=== PATIENT | female | born 1970 | race American Indian/Alaskan Native ===

== ENCOUNTER 2016-12-22 05:32 | Inpatient (IN) | payer OTHER ==
--- NOTE | 2016-12-22 08:18 | Emergency Department Report ---
- General Chief complaint: Eye Problems Stated complaint: EYE PAIN Time Seen by Provider: 12/22/16 07:15 Source: patient Mode of arrival: Ambulatory Limitations: No Limitations - History of Present Illness Initial comments: 46-year-old female past medical history hypertension, and compliant with medicines presents with complaint of 2 days of right eye irritation and pain. Patient states she has had some discharge from the eye. Denies any blurry vision. While waiting for examination patient informed nurse that she started feeling right-sided facial numbness. On exam patient is awake alert and oriented appears to be somewhat uncomfortable due to right eye pain, clutching her right eye. Patient's overall vision is intact mostly. Patient states she is only moderately compliant with her blood pressure medicines. Patient states that she feels right cheek numbness. This started approximately half an hour before I interviewed her. Denies any current chest pain palpitations shortness of breath nausea vomiting. Is complaining of right-sided headache and right eye pain. Denies any fever or chills no direct trauma. MD Complaint: generalized weakness, numbness Time: 03:00 Severity: moderate Quality: numbness, aching Consistency: constant Worsens with: none Associated Symptoms: headaches - Related Data Previous Rx's Medication Instructions Recorded Last Taken Type Lisinopril/Hydrochlorothiazide 1 each PO QDAY #14 tablet 07/11/15 12/21/16 12: 00 Rx [Zestoretic 20-12.5 mg] Allergies Allergy/AdvReac Type Severity Reaction Status Date / Time No Known Allergies Allergy Unverified 07/11/15 09:24 ED Review of Systems ROS: Stated complaint: EYE PAIN Other details as noted in HPI Constitutional: denies: chills, fever Eyes: eye pain, eye discharge. denies: vision change ENT: denies: ear pain, throat pain Respiratory: denies: cough, shortness of breath, wheezing Cardiovascular: denies: chest pain, palpitations Endocrine: no symptoms reported Gastrointestinal: denies: abdominal pain, nausea, diarrhea Genitourinary: denies: urgency, dysuria, discharge Musculoskeletal: denies: back pain, joint swelling, arthralgia Skin: denies: rash, lesions Neurological: numbness (beginning to report of right-sided facial numbness today ). denies: headache, weakness, paresthesias Psychiatric: denies: anxiety, depression Hematological/Lymphatic: denies: easy bleeding, easy bruising ED Past Medical Hx - Past Medical History Previous Medical History?: Yes Hx Hypertension: Yes - Surgical History Past Surgical History?: No - Social History Smoking Status: Never Smoker Substance Use Type: Alcohol - Medications Home Medications: Home Medications Medication Instructions Recorded Confirmed Last Taken Type Lisinopril/Hydrochlorothiazide 1 each PO QDAY #14 tablet 07/11/15 12/22/1612/21 12:00 Rx [Zestoretic 20-12.5 mg] ED Physical Exam - General Limitations: No Limitations General appearance: alert, in no apparent distress - Head Head exam: Present: atraumatic, normocephalic - Eye Eye exam: Present: normal appearance, PERRL, EOMI, conjunctival injection ( patient has conjunctival injection and irritation right eye) - Expanded Eye Exam Expanded Pupils: Regular, Round: Bilateral, Reactive: Bilateral Sclera/Conjunctival: Injection: Right Visual acuity (R) = 20/: 20 Visual acuity (L) = 20/: 20 With correction: No IOP (R) in mmH IOP measured with: Tonopen - ENT ENT exam: Present: mucous membranes moist - Neck Neck exam: Present: normal inspection, full ROM - Respiratory Respiratory exam: Present: normal lung sounds bilaterally. Absent: respiratory distress - Cardiovascular Cardiovascular Exam: Present: regular rate, normal rhythm. Absent: systolic murmur, diastolic murmur, rubs, gallop - GI/Abdominal GI/Abdominal exam: Present: soft, normal bowel sounds - Extremities Exam Extremities exam: Present: normal inspection, full ROM, normal capillary refill - Back Exam Back exam: Present: normal inspection - Neurological Exam Neurological exam: Present: alert, oriented X3, CN II-XII intact, normal gait - Expanded Neurological Exam Expanded Patient oriented to: Present: person, place, time Cerebellar function: Finger to Nose: Normal, Heel to Cristobal: Normal, Romberg: Normal Upper motor neuron: Vicente Neglect: Normal Sensory exam: Upper Extremity Light Touch: Normal, Lower Extremity Light Touch: Normal Motor strength exam: RUE: 5, LUE: 5, RLE: 5, LLE: 5 Best Eye Response (Janet): (4) open spontaneously Best Motor Response (Janet): (6) obeys commands Best Verbal Response (Janet): (5) oriented Pa[place]ilo Total: 15 - Psychiatric Psychiatric exam: Present: anxious - Skin Skin exam: Present: warm, dry, intact, normal color. Absent: rash - Assessment Assessment Interval: Baseline - Level of Consciousness 1a. Level of Consciousness: alert - LOC Questions 1b. LOC Questions: answers correctly - LOC Command 1c. LOC Commands: performs tasks correctly - Best Gaze 2. Best Gaze: normal - Visual 3. Visual: no visual loss - Facial Palsy 4. Facial Palsy: normal symmetrical movement - Motor Arm 5b. Motor Arm Right: no drift 5a. Motor Arm Left: no drift - Motor Leg 6a. Motor Leg Left: no drift 6b. Motor Leg Right: no drift - Limb Ataxia 7. Limb Ataxia: absent - Sensory 8. Sensory: mild/moderate sensory loss (I poked patient's face with a 20-gauge needle in right side where she claims she had numbness patient states she can barely feel the sharp edge of the needle) - Best Language 9. Best Language: no aphasia - Dysarthria 10. Dysarthria: normal - Extinction and Inattention 11. Extinction/Inattention: no abnormality - Scoring Total Score: 1 Stroke Severity: Minor Stroke ED Course Vital Signs 12/22/16 12/22/16 12/22/16 05:40 07:48 09:52 Temperature 98.2 F Pulse Rate 86 76 Respiratory 18 18 20 Rate Blood Pressure 155/112 Blood Pressure 165/104 [Left] O2 Sat by Pulse 96 100 Oximetry ED Medical Decision Making - Lab Data Result diagrams: 12/22/16 08:10 12/22/16 08:10 - Medical Decision Making A/P: Right eye conjunctivitis, possible TIA versus potential CVA 1-patient has clinical symptoms suggestive of right eye conjunctivitis. Vision is intact I performed a forcing stain very very small corneal abrasion to the left of iris not overlying the pupil. Intraocular pressure is 16 using Ramin- Pen I checked 3 times in a row right eye. Vision overall is 20/20. Vision right eye 20/30 vision left eye 20/20. Visible slight mucoid drainage and injection of conjunctiva on clinical exam. Erythromycin ointment to right eye 2-as patient complained of facial numbness new-onset with uncontrolled hypertension and given patient's age I considered possibility of CVA or TIA. I discussed case with Dr. Longoria who had me consult neurology and Dr. Vanegas. As per neurological consultation given patient's presentation there is no indication for acute TPA administration at this time. Dr. Murphy recommended MRI of the head and brain for further investigation of this facial numbness syndrome and potential CVA. As per Dr. Vanegas if MRI is normal there is no need for further neurological intervention or workup at this time, she would be able to follow-up as an outpatient for possible MRA of the head later time. 3-CT normal, labs within normal limits, EKG shows slight left axis deviation. I discussed the case with the hospitalist Dr. Keith who will admit the patient for an MRI of the head and nonspecific EKG abnormalities in context of uncontrolled hypertension 4- updated on pts course, pt agrees to admission Critical care attestation.: If time is entered above; I have spent that time in minutes in the direct care of this critically ill patient, excluding procedure time. ED Disposition Clinical Impression: Conjunctivitis Disposition: OP ADMITTED IP TO THIS HOSP Is pt being admited?: Yes Does the pt Need Aspirin: Yes Condition: Stable Referrals: PRIMARY CARE, [Primary Care Provider] - 3-5 Days
[2016-12-22 08:28] LABS: Basophils % (Auto) 0.8 % (0.0-1.8); Eosinophils % (Auto) 1.2 % (0.0-4.3); Hematocrit 39.9 % (30.3-42.9); Hemoglobin 13.4 gm/dl (10.1-14.3); Mean Corpuscular HGB Conc 34 % (30-34); Mean Corpuscular Hemoglobin 31 pg (28-32); Mean Corpuscular Volume 92 fl (79-97); Platelet Count 272 K/mm3 (140-440); Red Blood Count 4.33 M/mm3 (3.65-5.03); Red Cell Distribution Width 13.4 % (13.2-15.2); White Blood Count 4.3 K/mm3 (4.5-11.0)
[2016-12-22 08:37] LABS: INR 1.02 (0.87-1.13)
[2016-12-22 08:38] LABS: Partial Thromboplastin Time 28.6 Sec. (24.2-36.6)
[2016-12-22 08:43] LABS: Alanine Aminotransferase 11 units/L (7-56); Albumin 4.5 g/dL (3.9-5); Albumin/Globulin Ratio 1.5 %; Alkaline Phosphatase 64 units/L (35-129); Bilirubin,Total 0.3 mg/dL (0.1-1.2); Total Protein 7.5 g/dL (6.3-8.2)
[2016-12-22 08:46] LABS: Anion Gap 17 mmol/L; BUN/Creatinine Ratio 14.28; Blood Urea Nitrogen 10 mg/dL (7-17); Calcium 9.2 mg/dL (8.4-10.2); Carbon Dioxide 26 mmol/L (22-30); Chloride 99.8 mmol/L (98-107); Creatine Kinase 86 units/L (30-135); Glucose 120 mg/dL (65-100); Potassium 3.6 mmol/L (3.6-5.0); Sodium 139 mmol/L (137-145)
[2016-12-22 08:49] LABS: Bilirubin,Direct < 0.2 mg/dL (0-0.2); Bilirubin,Indirect 0.1 mg/dL
--- NOTE | 2016-12-22 09:08 | Cat Scan Report ---
FINAL REPORT PROCEDURE: CT HEAD/BRAIN WO CON TECHNIQUE: Computerized tomography of the head was performed without contrast material. HISTORY: weakness COMPARISON: No prior studies are available for comparison. FINDINGS: Skull and scalp: Normal. Paranasal sinuses: Normal. Ventricles and subarachnoid spaces: Normal. Cerebrum: No evidence of hemorrhage, acute infarction or mass . Cerebellum and brainstem: No evidence of hemorrhage, acute infarction or mass. Vasculature: No hyperdense MCA sign. Comments: None. IMPRESSION: Normal for age If symptoms and or concern persist consider followup MRI
[2016-12-22] MEDS ORDERED: FUL-GLO OP ONE ×2 (09:19→09:21)
[2016-12-22] MEDS ORDERED: TETRACAINE 0.5% ONE (09:19)
[2016-12-22] MEDS ORDERED: BSS ONE (09:19)
[2016-12-22] MEDS ORDERED: BABY ASPIRIN PO ONE (09:45)
[2016-12-22] MEDS ORDERED: TYLENOL PO ONE (09:45)
--- NOTE | 2016-12-22 10:39 | History and Physical Report ---
History of Present Illness Date of examination: 12/22/16 Date of admission: 12/22/16 Chief complaint: Burning ,irritation and increased lacrimation as well as foreign body sensation of the right eye Uncontrolled blood pressures, right facial numbness and weakness History of present illness: Very pleasant obese 46-year-old female patient with significant past medical history of hypertension on oral antihypertensives Presented to the emergency room with right IV redness burning pain and increased lacrimation the last 2-3 days Patient also complains of right facial numbness and weakness, initial workup in the emergency room revealed uncontrolled blood pressures CT head without contrast negative for acute intracranial abnormalities Patient never had similar symptoms in the past No history of TIA or CVA Patient denies chest pain or shortness of breath Denies headache or dizziness No history of loss of consciousness or seizure Past History Past Medical History: hypertension Past Surgical History: No surgical history Social history: lives with family, full code. denies: smoking, alcohol abuse, prescription drug abuse Family history: hypertension Medications and Allergies Allergies Allergy/AdvReac Type Severity Reaction Status Date / Time No Known Allergies Allergy Unverified 07/11/15 09:24 Home Medications Medication Instructions Recorded Confirmed Last Taken Type Lisinopril/Hydrochlorothiazide 1 each PO QDAY #14 tablet 07/11/15 12/22/1612/21 12:00 Rx [Zestoretic 20-12.5 mg] Review of Systems Constitutional: no weight loss, no weight gain, no fever, no chills Eyes: right: pain, irritation, bilateral: blurred vision (denies), diplopia ( denies) Ears, nose, mouth and throat: no nasal congestion, no nasal discharge Cardiovascular: no chest pain, no orthopnea, no shortness of breath Respiratory: no cough, no shortness of breath Gastrointestinal: no abdominal pain, no nausea, no vomiting Genitourinary Female: no dysuria, no urgency Musculoskeletal: other (right facial numbness and weakness), no myalgias, no arthritis Integumentary: no rash, no lesions Neurological: parathesias, numbness (face), no seizures, no syncope Psychiatric: no anxiety, no depression Endocrine: no cold intolerance, no heat intolerance, no polydipsia, no polyuria Hematologic/Lymphatic: no easy bruising, no easy bleeding Allergic/Immunologic: no urticaria, no allergic rhinitis Exam - Constitutional Vitals: Temp Pulse Resp BP Pulse Ox 98.2 F 76 20 165/104 100 12/22/16 05:40 12/22/16 07:48 12/22/16 09:52 12/22/16 07:48 12/22/16 07:48 General appearance: Present: no acute distress, obese - EENT Eyes: Present: PERRL, EOM intact, conjunctival injection (right eye) ENT: hearing intact, clear oral mucosa - Neck Neck: Present: supple, normal ROM - Respiratory Respiratory effort: normal Respiratory: negative: rales, rhonchi, wheezing - Cardiovascular Rhythm: regular Heart Sounds: Present: S1 & S2 - Extremities Extremities: no ischemia, pulses intact, pulses symmetrical Peripheral Pulses: within normal limits - Abdominal General gastrointestinal: Present: soft, non-tender, non-distended, normal bowel sounds - Integumentary Integumentary: Present: clear, warm - Musculoskeletal Musculoskeletal: strength equal bilaterally, other (right facial weakness and numbness) - Psychiatric Psychiatric: appropriate mood/affect, cooperative - Neurologic Neurologic: moves all extremities Results - Labs CBC & Chem 7: 12/22/16 08:10 12/22/16 08:10 Labs: Abnormal lab results 12/22/16 12/22/16 Range/Units 08:10 08:10 WBC 4.3 L (4.5-11.0) K/mm3 Lymph % (Auto) 48.1 H (13.4-35.0) % Stanton % (Auto) 8.0 H (0.0-7.3) % Glucose 120 H (65-100) mg/dL Assessment and Plan --Malignant hypertension Resume home antihypertensives, when necessary hydralazine --Right facial numbness and weakness/possible TIA Not a candidate for TPA, neuro workup with neuro checks CT head negative for acute intracranial abnormalities Neurologist was contacted by nurse practitioner, recommend MRI Will check MRI without contrast, carotid Doppler Managed with aspirin and statin Lipid panel --Right eye conjunctivitis/?Foreign body Supportive care, eye drops If no improvement patient may need to see piano technician Outpatient for further evaluation and management --Obesity Counseling done patient strongly advised dietary modification and exercise as tolerated and weight reduction When medically stable --DVT prophylaxis with Lovenox This closely monitor the patient and adjust the management as needed Possible discharge in 1-2 days if workup is negative and patient is stable Patient's condition treatment plan discussed in detail with the patient, nurse As well as the nurse practitioner
[2016-12-22] MEDS ORDERED: ERYTHROMYCIN OPHTH OINT OU ONE (11:00)
[2016-12-22] MEDS ORDERED: AMBIEN PO PRN (11:07)
[2016-12-22] MEDS ORDERED: APRESOLINE IV PRN (11:07)
[2016-12-22] MEDS ORDERED: ISOPTO TEARS 0.5% OU PRN (11:07)
[2016-12-22] MEDS ORDERED: TYLENOL PO PRN (11:07)
[2016-12-22 11:25] LABS: Bilirubin,Urine NEG (Negative); Blood,Urine SM (Negative); Ketones,Urine NEG (Negative); Leukocyte Esterase,Urine NEG (Negative); Mucus,Urine FEW /HPF; Nitrite,Urine NEG (Negative); Protein,Urine <15 mg/dL mg/dL (Negative); Urobilinogen,Urine < 2.0 mg/dL (<2.0)
--- NOTE | 2016-12-22 13:17 | Magnetic Resonance Report ---
MRI OF THE BRAIN WITHOUT CONTRAST: HISTORY: Right facial weakness and numbness, syncope. PROCEDURE: Multiplanar, multisequence MR imaging of the brain without IV contrast was performed. FINDINGS: The brain parenchyma signal intensity and its mack white interface are within normal limits on all sequences. Minimal nonspecific chronic white matter changes are noted. No evidence for acute ischemia, hemorrhage or mass. No chronic infarct or extra-axial fluid collection. The midline structures are central. The basal cisterns are patent. Normal ventricular size. The orbital cavities and sella turcica demonstrate no abnormality. The visualized paranasal sinuses and mastoid air cells are well aerated. IMPRESSION: Unremarkable non-enhanced MRI of the brain.
[2016-12-22] MEDS: LOVENOX SUB-Q SCH (15:49)
--- NOTE | 2016-12-23 08:13 | Discharge Summary ---
Providers - Providers Date of Admission: 12/22/16 11:04 Date of discharge: 12/23/16 Attending physician: SONAM STEVENSON Primary care physician: RESP THERAPIST Hospitalization Reason for admission: right facial numbness and weakness/right eye irritation Condition: Stable Pertinent studies: CT head without contrast; no acute intracranial abnormality noted MRI brain; no acute findings noted Carotid Doppler; no hemodynamically significant stenosis Hospital course: 46-year-old -[place] female patient was admitted through emergency room with the right eye irritation and burning increased lacrimation as well as right -sided facial weakness and numbness for the last to 3 days Patient was not a candidate for TPA, admitted to the hospital symptomatically managed Had extensive neuro workup to rule out TIA/CVA Patient's CT head without contrast MRI of the brain echocardiogram within normal limits. She had mild elevation of LDL, received aspirin and statin during the hospital stay Today patient is comfortable symptoms completely resolved, denies any weakness or numbness, denies any irritation in the eye, patient feels that she had a eyelash that she washed off Alert awake oriented 3, vital signs are stable [id number] evaluation physical examination done by me prior to discharge is unremarkable as detailed below Advised to take [id number] baby aspirin, advised low-cholesterol diet, advised dietary modification and exercise and weight reduction Patient verbalized understanding If she should have recurrent episodes of weakness and numbness, she may need to see a neurologist for further evaluation and management as outpatient Patient verbalized understanding final diagnosis; Right facial weakness and numbness resolved Possible TIA Right eye irritation/foreign body resolved Dyslipidemia advised diet Obesity; dietary modification weight reduction Hypertension well-controlled Disposition: DISCHARGED TO HOME OR SELFCARE Time spent for discharge: 32 min Core Measure Documentation - Palliative Care Palliative Care/ Comfort Measures: Not Applicable - Core Measures Any of the following diagnoses?: none Exam - Constitutional Vitals: Temp Pulse Resp BP Pulse Ox 98.2 F 77 18 144/96 97 12/23/16 00:06 12/23/16 00:06 12/23/16 00:06 12/23/16 00:06 12/23/16 00:06 General appearance: Present: no acute distress, well-nourished - EENT Eyes: Present: PERRL, EOM intact - Neck Neck: Present: supple, normal ROM - Respiratory Respiratory effort: normal Respiratory: negative: rales, rhonchi, wheezing - Cardiovascular Rhythm: regular Heart Sounds: Present: S1 & S2 - Extremities Extremities: no ischemia, pulses intact, pulses symmetrical Peripheral Pulses: within normal limits - Abdominal General gastrointestinal: Present: soft, non-tender, non-distended, normal bowel sounds - Integumentary Integumentary: Present: clear, warm - Musculoskeletal Musculoskeletal: strength equal bilaterally - Psychiatric Psychiatric: appropriate mood/affect, cooperative - Neurologic Neurologic: CNII-XII intact, moves all extremities Plan Activity: no restrictions Diet: low cholesterol Additional Instructions: see private machine crater in 2 days. low fat diet, check your Lipid panel in 6 mths at PMD office Follow up with: PRIMARY CARE, [Primary Care Provider] - 3-5 Days Prescriptions: oxyCODONE /ACETAMINOPHEN [Percocet 5/325] 1 tab PO BID PRN #10 tablet PRN Reason: Pain
[2016-12-23 09:30] VITALS: BP 130/70
[2016-12-23] MEDS: LOVENOX SUB-Q SCH (09:30)
[2016-12-23] MEDS ORDERED: LOVENOX SUB-Q SCH (10:00)
[2016-12-23] MEDS ORDERED: ZESTRIL PO SCH (10:00)
[2016-12-23] MEDS ORDERED: ASPIRIN PO SCH (10:00)
[2016-12-23] MEDS ORDERED: HCTZ PO SCH (10:00)
--- NOTE | 2016-12-26 08:04 | Vascular Lab Report ---
CAROTID DUPLEX STUDY: RIGHT PSVEDV CCA PROX: 7119 CCA DIST: 7121 ICA PROX: 5219 ICA MID: 7834 ICA DIST: 8449 ECA: 85 VERT: 50 18 LEFT PSVEDV CCA PROX: 7820 CCA DIST: 7525 ICA PROX: 3816 ICA MID:[id number] ICA DIST: 7831 ECA: 52 VERT: 49 23 REASON FOR EXAM: Stroke with right facial numbness. COMMENTS ON THE RIGHT: Doppler frequency analysis is consistent with 16 to 49 percent diameter reduction of the internal carotid artery. Minimal amount of plaque is seen. The common carotid artery is patent. The external carotid artery is patent. The vertebral artery has antegrade flow. COMMENTS ON THE LEFT: Doppler frequency analysis is consistent with 16 to 49 percent diameter reduction of the internal carotid artery. Minimal amount of plaque is seen. The common carotid artery is patent. The external carotid artery is patent. The vertebral artery has antegrade flow. IMPRESSION: Less than 50% diameter reduction in the internal carotid arteries bilaterally. Consider repeat carotid artery duplex in 12 months.`
== END 2016-12-23 11:30 | disposition home or self-care (01) | DRG 69 ==
LOC: ED 05:32 → 3A 11:04
PROVIDERS: ADMIT Internal Medicine; ATTEND Internal Medicine
DX: G45.9 Transient cerebral ischemic attack, unspecified (principal); R29.810 Facial weakness; T15.91XA Foreign body on external eye, part unspecified, right eye, initial encounter; I10 Essential (primary) hypertension; R20.0 Anesthesia of skin; E78.5 Hyperlipidemia, unspecified; E66.9 Obesity, unspecified; Z68.32 Body mass index [BMI] 32.0-32.9, adult
CPT/HCPCS: 36415; 70450; 70551; 80048; 80061; 80074; 81001; 82550; 84484; 84703; 85025; 85610; 85730; 93005; 93010; 93880; A9270-GY; J1650

== ENCOUNTER 2018-05-28 09:55 | Emergency (ER) | payer OTHER ==
--- NOTE | 2018-05-28 10:50 | Emergency Department Report ---
Minor Respiratory - HPI Chief Complaint: Chest Pain Stated Complaint: CHEST PAIN/COUGHING Time Seen by Provider: 05/28/18 10:35 Duration: 4 Days Pain Location: Facial Severity: severe Minor Respiratory: Yes Rhinorrhea, Yes Cough, Yes Sick Contacts, Yes Chest Pain , No Sore Throat, No Able to Tolerate Fluids, No Ear Pain, No Shortness of Breath, No Fever Other History: H and is a 47-year-old female presents to emergency room with complaints of dry cough 3-4 days. Patient states now now her chest started to hurt from all cough. Patient states should have a chest pain unless she coughs. Patient also complains of facial pain over her maxillary sinuses. Patient denies fever and chills. Patient denies shortness of breath. Patient states she has tried [id number] medication has not improved. Patient states she has a past medical history of high blood pressure and is stable on her current medications. ED Review of Systems ROS: Stated complaint: CHEST PAIN/COUGHING Other details as noted in HPI Constitutional: denies: chills, fever Eyes: denies: eye pain, eye discharge, vision change ENT: congestion. denies: ear pain, throat pain Respiratory: cough. denies: shortness of breath, wheezing Cardiovascular: denies: palpitations Endocrine: no symptoms reported Gastrointestinal: denies: abdominal pain, nausea, diarrhea Genitourinary: denies: urgency, dysuria, discharge Musculoskeletal: denies: back pain, joint swelling, arthralgia Skin: denies: rash, lesions Neurological: denies: headache, weakness, paresthesias Psychiatric: denies: anxiety, depression Hematological/Lymphatic: denies: easy bleeding, easy bruising ED Past Medical Hx - Past Medical History Previous Medical History?: Yes Hx Hypertension: Yes Hx Congestive Heart Failure: No Hx Diabetes: No Hx Asthma: No Hx COPD: No - Surgical History Past Surgical History?: No - Family History Family history: hypertension - Social History Smoking Status: Never Smoker Substance Use Type: Alcohol - Medications Home Medications: Home Medications Medication Instructions Recorded Confirmed Last Taken Type Lisinopril/Hydrochlorothiazide 1 each PO QDAY #14 tablet 07/11/15 12/22/1612/21 12:00 Rx [Zestoretic 20-12.5 mg] oxyCODONE /ACETAMINOPHEN [Percocet 1 tab PO BID PRN #10 tablet 12/23/16 Unknown Rx 5/325] Doxycycline Hyclate [Doxycycline 100 mg PO Q12HR 10 Days #20 tab 05/28/18 Unknown Rx Hyclate TAB] methylPREDNISolone [Medrol] 4 mg PO DAILY 6 Days #1 tab.ds.pk 05/28/18 Unknown Rx Minor Respiratory Exam - Exam General: Vital signs noted. No distress. Alert and acting appropriately. Bilateral sinus tenderness noted. Chest wall tenderness noted on palpation. Chest wall palpation reproduces symptoms. GENERAL: [] HEAD: [Atraumatic, normocephalic]. EYES: [Pupils equal round and reactive to light, extraocular movements intact, sclera anicteric, conjunctiva are normal]. NECK: [Normal range of motion, supple without lymphadenopathy or JVD]. LUNGS: [Breath sounds clear to auscultation bilaterally and equal. No wheezes rales or rhonchi]. HEART: [Regular rate and rhythm without murmurs, rubs or gallops]. ABDOMEN: [Soft, nontender, normoactive bowel sounds. No guarding, no rebound. No masses appreciated]. EXTREMITIES: [Normal range of motion, no pitting or edema. No clubbing or cyanosis]. NEUROLOGICAL: [Cranial nerves II through XII grossly intact. Normal speech, normal gait]. PSYCH: [Normal mood, normal affect]. SKIN: [Warm, Dry, normal turgor, no rashes or lesions noted]. HEENT: Yes Pharyngeal Erythema, Yes Moist Mucous Membranes, Yes Rhinorrhea, Yes Frontal Tenderness, Yes Maxillary Tenderness, No Pharyngeal Exudates, No Conjuctival Injection Ear: Neither TM Bulge, Neither TM Erythema, Neither EAC Pain, Neither EAC Discharge Neck: Yes Supple, No Adenopathy Lungs: Yes Good Air Exchange, Yes Cough, No Wheezes, No Ronchi, No Labored Respirations, No Retractions, No Use of Accessory Muscles, No Other Abnormal Lung Sounds Heart: Yes Regular, No Murmur Abdomen: No Tenderness, No Peritoneal Signs, No Normal Bowel Sounds Skin: No Rash, No Edema Neurologic: Alert and oriented, no deficits. Musculoskeletal: Unremarkable. ED Course Vital Signs 05/28/18 09:59 Temperature 98.1 F Pulse Rate 89 Respiratory 16 Rate Blood Pressure 133/88 O2 Sat by Pulse 98 Oximetry - Reevaluation(s) Reevaluation #1: Clinical exam and clinical findings, patient appears to have a sinus infection along with bronchitis. Patient will be treated with oral antibiotics and a Medrol Dosepak. Discussed discharge instructions with the patient. Discussed return to ER instructions with the patient. Discussed how to take medications with patient. Patient take medications as directed. Patient to increase water. Patient to rest. 05/28/18 10:50 ED Medical Decision Making - EKG Data -: EKG Interpreted by Me EKG shows normal: sinus rhythm, axis, intervals, QRS complexes, ST-T waves Rate: normal - Medical Decision Making Is a 47-year-old female presents to emergency room with cough and chest pain with coughing. EKG is normal. Patient's chest pain is reproducible on exam. Based on clinical exam patient has a bilateral sinusitis and bronchitis as well as a URI. Patient will be treated accordingly with a antibiotics and a Medrol Dosepak. Patient will be discharged home. Patient is stable for discharge. Patient given discharge instructions. - Differential Diagnosis uri. sinusitis. chest pain. bronchitis. Critical care attestation.: If time is entered above; I have spent that time in minutes in the direct care of this critically ill patient, excluding procedure time. ED Disposition Clinical Impression: Cough, Chest wall pain Sinusitis Qualifiers: Sinusitis location: maxillary Chronicity: acute Recurrence: non-recurrent Qualified Code(s): J01.00 - Acute maxillary sinusitis, unspecified Acute bronchitis Qualifiers: Bronchitis organism: unspecified organism Qualified Code(s): J20.9 - Acute bronchitis, unspecified URI (upper respiratory infection) Qualifiers: URI type: acute nasopharyngitis (common cold) Qualified Code(s): J00 - Acute nasopharyngitis [common cold] Disposition: DC-01 TO HOME OR SELFCARE Is pt being admited?: No Does the pt Need Aspirin: No Condition: Stable Instructions: Chest Pain (ED), Sinusitis (ED), Costochondritis (ED), Upper Respiratory Infection (ED), Acute Bronchitis (ED) Additional Instructions: Patient follow up with primary care in 3-5 days. Patient to return to ER if condition worsens. Patient to take meds as directed. Patient take Tylenol and ibuprofen when necessary for pain and increase water. Patient to rest Prescriptions: Doxycycline Hyclate [Doxycycline Hyclate TAB] 100 mg PO Q12HR 10 Days #20 tab methylPREDNISolone [Medrol] 4 mg PO DAILY 6 Days #1 tab.ds.pk Referrals: PRIMARY CARE, [Primary Care Provider] - 3-5 Days Forms: Work/School Release Form(ED) Time of Disposition: 11:00
[2018-05-28 11:40] VITALS: BP 140/87
== END 2018-05-28 11:05 | disposition home or self-care (01) ==
LOC: ED 09:55
DX: J20.9 Acute bronchitis, unspecified (principal); J06.9 Acute upper respiratory infection, unspecified; J01.00 Acute maxillary sinusitis, unspecified; I10 Essential (primary) hypertension
CPT/HCPCS: 93005; 93010; 99282

== ENCOUNTER 2018-11-19 20:57 | Emergency (ER) | payer OTHER ==
--- NOTE | 2018-11-19 21:12 | Emergency Department Report ---
Blank Doc - Documentation Documentation: This is a 48-year-old female that presents with left ankle/tib-fib pain status post fall. This initial assessment/diagnostic orders/clinical plan/treatment(s) is/are subject to change based on patient's health status, clinical progression and re- assessment by fellow clinical providers in the ED. Further treatment and workup at subsequent clinical providers discretion. Patient/guardians urged not to elope from the ED as their condition may be serious if not clinically assessed and managed. Initial orders include: 1- Patient sent to [facility] for further evaluation and treatment 2- xrays
[2018-11-19 21:13] VITALS: BP 166/98
--- NOTE | 2018-11-19 22:08 | Emergency Department Report ---
ED Fall HPI - General Chief Complaint: Extremity Injury, Lower Stated Complaint: WORK RELATED ANKLE INJURY Time Seen by Provider: 11/19/18 21:10 Source: patient Mode of arrival: Ambulatory - History of Present Illness Initial Comments: 48-year-old female reports that she fell when she was working on a low ladder. Now she complains of left leg and ankle pain. Patient reports that she has been placing ice elevation and has taken pain medication. Patient reports a past medical history of hypertension. MD Complaint: fall -: This morning Fall From: standing Fall Witnessed: yes, by family Place Fall Occurred: work Loss of Consciousness: none Prolonged Down Time?: no Symptoms Prior to Fall: none Location - Extremities: Left: Ankle Severity scale (0 -10): 10 Quality: sharp - Related Data Previous Rx's Medication Instructions Recorded Last Taken Type Lisinopril/Hydrochlorothiazide 1 each PO QDAY #14 tablet 07/11/15 12/21/16 12:00 Rx [Zestoretic 20-12.5 mg] oxyCODONE /ACETAMINOPHEN [Percocet 1 tab PO BID PRN #10 tablet 12/23/16 Unknown Rx 5/325] Doxycycline Hyclate [Doxycycline 100 mg PO Q12HR 10 Days #20 tab 05/28/18 Unknown Rx Hyclate TAB] methylPREDNISolone [Medrol] 4 mg PO DAILY 6 Days #1 tab.ds.pk 05/28/18 Unknown Rx Ibuprofen [Motrin 600 MG tab] 600 mg PO Q8H PRN #30 tablet 11/19/18 Unknown Rx Allergies Allergy/AdvReac Type Severity Reaction Status Date / Time No Known Allergies Allergy Verified 05/28/18 09:59 ED Review of Systems ROS: Stated complaint: WORK RELATED ANKLE INJURY Other details as noted in HPI Comment: All other systems reviewed and negative Musculoskeletal: joint swelling (left ankle), arthralgia (left ankle) ED Past Medical Hx - Past Medical History Hx Hypertension: Yes Hx Congestive Heart Failure: No Hx Diabetes: No Hx Asthma: No Hx COPD: No - Surgical History Past Surgical History?: No - Social History Smoking Status: Never Smoker Substance Use Type: Alcohol - Medications Home Medications: Home Medications Medication Instructions Recorded Confirmed Last Taken Type Lisinopril/Hydrochlorothiazide 1 each PO QDAY #14 tablet 07/11/15 12/22/16 12/21/16 12:00 Rx [Zestoretic 20-12.5 mg] oxyCODONE /ACETAMINOPHEN [Percocet 1 tab PO BID PRN #10 tablet 12/23/16 Unknown Rx 5/325] Doxycycline Hyclate [Doxycycline 100 mg PO Q12HR 10 Days #20 tab 05/28/18 Unknown Rx Hyclate TAB] methylPREDNISolone [Medrol] 4 mg PO DAILY 6 Days #1 tab.ds.pk 05/28/18 Unknown Rx Ibuprofen [Motrin 600 MG tab] 600 mg PO Q8H PRN #30 tablet 11/19/18 Unknown Rx ED Physical Exam - General Limitations: No Limitations General appearance: alert, in no apparent distress - Head Head exam: Present: atraumatic, normocephalic - Eye Eye exam: Present: normal appearance - ENT ENT exam: Present: mucous membranes moist - Expanded Lower Extremity Exam Left Hip exam: Present: normal inspection Upper Leg exam: Present: normal inspection Knee exam: Present: normal inspection Lower Leg exam: Present: normal inspection Ankle exam: Present: tenderness (medial aspect), swelling (mild swelling), ecchymosis (mild ecchymosis) Foot/Toe exam: Present: normal inspection, full ROM. Absent: tenderness, swelling Neuro vascular tendon exam: Present: no vascular compromise - Neurological Exam Neurological exam: Present: alert, oriented X3 - Psychiatric Psychiatric exam: Present: normal affect, normal mood - Skin Skin exam: Present: warm, dry, intact, normal color. Absent: rash ED Course Vital Signs 11/19/18 21:11 Temperature 98.6 F Pulse Rate 69 Respiratory 16 Rate Blood Pressure 166/98 O2 Sat by Pulse 97 Oximetry ED Medical Decision Making - Radiology Data Radiology results: report reviewed Patient: ESHA JAIN MR #: [id number] : 1970 Acct:[id number] Age/Sex: 48 / F ADM Date: 11/19/18 Loc: ED Attending Dr: Ordering Physician: GEORGE CAT NP Date of Service: 11/19/18 Procedure(s): XR tibia fibula 2V LT Accession Number(s): [id number] cc: GEORGE CAT NP Fluoro Time In Minutes: PROCEDURE: XR TIBIA FIBULA 2V LT TECHNIQUE: Left tibia and fibula radiographs, AP and lateral views. HISTORY: pain COMPARISONS: None. FINDINGS: Fracture (s) and/or Dislocation(s): None. Joint space(s): Normal. Soft tissues: Normal. Bone mineralization: Normal. Foreign bodies: None. IMPRESSION: Normal Examination. This document is electronically signed by Toño Josue MD., November 19 2018 10:48:10 PM ET Transcribed By: CO Dictated By: TOÑO JOSUE MD Electronically Authenticated By: TOÑO JOSUE MD Signed Date/Time: 11/19/182248 DD/ 52 TD/TT: 11/19/182153 Patient: ESHA JAIN MR #: [id number] : 1970 Acct:[id number] Age/Sex: 48 / F ADM Date: 11/19/18 Loc: ED Attending Dr: Ordering Physician: GEORGE CAT NP Date of Service: 11/19/18 Procedure(s): XR ankle 3+V LT Accession Number(s): [id number] cc: GEORGE CAT NP Fluoro Time In Minutes: PROCEDURE: XR ANKLE 3+V LT TECHNIQUE: Left ankle radiographs, AP, lateral, and oblique views. HISTORY: pain COMPARISONS: None . FINDINGS: Fracture (s) and/or Dislocation(s): None . Alignment: Normal . Joint space(s): Normal . Soft tissues: Normal . Bone mineralization: Normal . Foreign bodies: None . Calcaneal spurring: None . IMPRESSION: Normal Examination . This document is electronically signed by Toño Josue MD., November 19 2018 10:49:57 PM ET Transcribed By: CO Dictated By: TOÑO JOSUE MD Electronically Authenticated By: TOÑO JOSUE MD Signed Date/Time: 11/19/182250 DD/ 53 TD/TT: 11/19/182153 - Medical Decision Making Recent has been evaluated by this provider in [facility]. X-ray of tibia-fibula in ankle shows no acute abnormalities/normal examination. We'll place patient in an air cast for right ankle and a referral to orthopedics if symptoms does not improved. Discussed the patient Rice therapy. Pain medication. Critical care attestation.: If time is entered above; I have spent that time in minutes in the direct care of this critically ill patient, excluding procedure time. ED Disposition Clinical Impression: Fall Qualifiers: Encounter type: initial encounter Qualified Code(s): W19.XXXA - Unspecified fall, initial encounter Left ankle pain Qualifiers: Chronicity: acute Qualified Code(s): M25.572 - Pain in left ankle and joints of left foot Left ankle sprain Qualifiers: Encounter type: initial encounter Involved ligament of ankle: unspecified ligament Qualified Code(s): S93.402A - Sprain of unspecified ligament of left ankle, initial encounter Disposition: TO HOME OR SELFCARE Is pt being admited?: No Does the pt Need Aspirin: No Condition: Stable Instructions: Arthralgia (ED), RICE Therapy (ED) Additional Instructions: Please take ibuprofen as needed. Please wear Aircast for support. Follow up with her primary care provider symptoms persist or gets worse. Prescriptions: Ibuprofen [Motrin 600 MG tab] 600 mg PO Q8H PRN #30 tablet PRN Reason: Pain Referrals: [place] MATHEWS MD [Primary Care Provider] - 3-5 Days JENNIFER MELÉNDEZ MD [Staff Physician] - 3-5 Days Forms: Work/School Release Form(ED)
--- NOTE | 2018-11-19 22:49 | XRay Report ---
PROCEDURE: XR TIBIA FIBULA 2V LT TECHNIQUE: Left tibia and fibula radiographs, AP and lateral views. HISTORY: pain COMPARISONS: None. FINDINGS: Fracture (s) and/or Dislocation(s): None. Joint space(s): Normal. Soft tissues: Normal. Bone mineralization: Normal. Foreign bodies: None. IMPRESSION: Normal Examination. This document is electronically signed by Toño Feliz MD., November 19 2018 10:48:10 PM ET
--- NOTE | 2018-11-19 22:51 | XRay Report ---
PROCEDURE: XR ANKLE 3+V LT TECHNIQUE: Left ankle radiographs, AP, lateral, and oblique views. HISTORY: pain COMPARISONS: None . FINDINGS: Fracture (s) and/or Dislocation(s): None . Alignment: Normal . Joint space(s): Normal . Soft tissues: Normal . Bone mineralization: Normal . Foreign bodies: None . Calcaneal spurring: None . IMPRESSION: Normal Examination . This document is electronically signed by Toño Feliz MD., November 19 2018 10:49:57 PM ET
== END 2018-11-20 00:02 | disposition home or self-care (01) ==
LOC: ED 20:57
DX: S93.402A Sprain of unspecified ligament of left ankle, initial encounter (principal); I10 Essential (primary) hypertension; Z79.899 Other long term (current) drug therapy; W17.89XA Other fall from one level to another, initial encounter; Y93.89 Activity, other specified; Y99.0 Civilian activity done for income or pay; Y92.69 Other specified industrial and construction area as the place of occurrence of the external cause
CPT/HCPCS: 99283

== ENCOUNTER 2022-02-06 09:47 | Emergency (ER) | payer SELFPAY ==
[2022-02-06 10:16] VITALS: BP 173/101
== END 2022-02-06 15:00 | disposition left against medical advice (07) ==
LOC: ED 09:47
DX: I10 Essential (primary) hypertension (principal); Z53.21 Procedure and treatment not carried out due to patient leaving prior to being seen by health care provider